=== PATIENT | male | born 1975 | race African-American/Black ===

== ENCOUNTER 2017-09-12 08:34 | Emergency (ER) | payer OTHER ==
[~2017-09-12] VITALS: Ht 177.8 cm; Wt 68.0 kg
[2017-09-12 11:00] LABS: URINE BILIRUBIN NEGATIVE (Negative); URINE BLOOD NEGATIVE (Negative); URINE COLOR YELLOW; URINE GLUCOSE-RANDOM* NEGATIVE (Negative); URINE KETONES NEGATIVE (Negative); URINE NITRITE NEGATIVE (Negative); URINE PROTEIN (DIPSTICK) NEGATIVE (Negative); URINE UROBILINOGEN 0.2 E.U./dl (0.2-1.0)
[2017-09-12 11:01] LABS: ABSOLUTE NEUTROPHILS 4.3 thou/uL (1.4-8.2); BASOPHILS 0.8 % (0.0-2.0); EOSINOPHILS 0.6 % (0.0-3.0); HEMATOCRIT 38.3 % (42.0-52.0); LYMPHOCYTES 24.3 % (24.0-44.0); MCH 32.2 pg (26.0-34.0); MCV 94.6 fL (80.0-100.0); PLATELET COUNT 185 thou/uL (150-400); POLYS 69.3 % (36.0-66.0); RBC 4.05 mil/uL (4.50-6.00); RDW 14.9 % (10.5-14.5); WBC 6.3 thou/uL (4.0-11.0)
[2017-09-12 11:02] LABS: MANUAL DIFF NO
[2017-09-12 11:10] LABS: CALCIUM 8.8 mg/dL (8.5-10.1); CREATININE 1.1 mg/dL (0.7-1.3); POTASSIUM 4.1 mmol/L (3.5-5.1)
[2017-09-12] MEDS ORDERED: MOBIC7.5 MG PO (11:15)
[2017-09-12 11:17] LABS: ALBUMIN 3.7 g/dL (3.4-5.0); TOTAL BILIRUBIN 0.3 mg/dL (<0.1-1.0); TOTAL PROTEIN 6.7 g/dL (6.4-8.2)
[2017-09-12 11:33] VITALS: BP 132/85
== END 2017-09-12 11:34 | disposition home or self-care (01) ==
LOC: ER 08:34
PROVIDERS: Physician Assistant
DX: R59.1 Generalized enlarged lymph nodes (principal); N43.3 Hydrocele, unspecified; F17.210 Nicotine dependence, cigarettes, uncomplicated